=== PATIENT | female | born 1955 | race Caucasian/White ===

== ENCOUNTER 2017-06-23 17:45 | Emergency (ER) | payer BC, OTHER ==
[~2017-06-23] VITALS: Ht 157.5 cm; Wt 65.8 kg
[2017-06-23] MEDS ORDERED: Norco 5mg/325mg tab ORAL ONE (18:15)
[2017-06-23] MEDS ORDERED: IBUPROFEN600 MG ORAL (18:48)
[2017-06-23] MEDS ORDERED: NORCO 5-325 TA1 EACH ORAL (18:48)
--- NOTE | 2017-06-23 18:48 | Emergency Room Report ---
History of Present Illness General Chief Complaint: Lower Extremity Injury Source: Patient (Francesca Ma) Present Illness HPI 62-year-old female presents to the emergency department complaining of 5/10 in severity left ankle pain in addition to right knee pain status post mechanical slip and fall approximately 2 hours ago. Patient reports swelling of the left ankle. Patient states pain is exacerbated upon weightbearing and walking. Patient denies hitting her head or loss of consciousness she denies neck or back pain. Denies numbness tingling or loss of sensation or gross motor movements of the extremities, incontinence of bowel or bladder. Denies CP, Palpitations, LOC, AMS, dizziness, Changes in Vision, Sensation, paresthesias, or a sudden severe headache. (Francesca Ma) Allergies: Coded Allergies: AMPICILLIN (Unverified Allergy, Unknown, 06/23/17) Patient History Past Medical History: see triage record Past Surgical History: none Pertinent Family History: none Now: No Reviewed Nursing Documentation: PMH: Agreed, PSxH: Agreed (Francesca Ma) Nursing Documentation-PMH Past Medical History: No Stated History (Francesca aM) Review of Systems All Other Systems: negative except mentioned in HPI (Francesca Ma) Physical Exam Vital Signs Date Time Temp Pulse Resp B/P (MAP) Pulse Ox O2 Delivery O2 Flow Rate FiO2 06/23/17 17:40 98.2 78 16 120/8 98 Room Air Sp02 EP Interpretation: reviewed, normal General Appearance: no apparent distress, alert, GCS 15, non-toxic Head: normocephalic, atraumatic Eyes: bilateral eye normal inspection, bilateral eye PERRL ENT: hearing grossly normal, normal voice Neck: full range of motion Respiratory: lungs clear, normal breath sounds, speaking full sentences Cardiovascular #1: regular rate, rhythm, normal capillary refill Cardiovascular #2: 2+ dorsalis pedis (L) Musculoskeletal: back normal, gait/station normal, normal range of motion, swelling - LEft lateral ankle, tender - Left lateral ankle, anterior right knee , no increased laxity or obvious deformity, FROM, Snuff box ttp in the left hand, From no obvious deformity. Neurologic: alert, oriented x3, responsive, motor strength/tone normal, sensory intact, speech normal Skin: normal color, no rash, warm/dry, well hydrated (Francesca Ma) Medical Decision Making PA Attestation Dr. galeano is my supervising Physician whom patient management has been discussed with. (Francesca Ma) Diagnostic Impression: Primary Impression: Left ankle sprain Qualified Codes: S93.402A - Sprain of unspecified ligament of left ankle, initial encounter Additional Impressions: Right knee sprain Qualified Codes: S83.91XA - Sprain of unspecified site of right knee, initial encounter Wrist pain, left possible occult scaphoid fracture due to snuff box tenderness after fall ER Course 62-year-old female presents to the emergency department complaining of 5/10 in severity left ankle pain in addition to right knee pain status post mechanical slip and fall approximately 2 hours ago. Patient reports swelling of the left ankle. Patient states pain is exacerbated upon weightbearing and walking. Patient denies hitting her head or loss of consciousness she denies neck or back pain. Denies numbness tingling or loss of sensation or gross motor movements of the extremities, incontinence of bowel or bladder. Denies CP, Palpitations, LOC, AMS, dizziness, Changes in Vision, Sensation, paresthesias, or a sudden severe headache. Ddx considered but are not limited to Fracture, dislocation, contusion, Sprain/ Strain/Spasm. Vital signs: are WNL, pt. is afebrile H&PE are most consistent with musculoskeletal injury will perform imaging to r/ o fractures/dislocations. -Pt. also noted to have snuff box ttp. ORDERS: - X-ray Left ankle, Right knee, and left hand. ED INTERVENTIONS: - [place] PO -ICE PACKS - Air Splint applied to the left ankle by technical project coordinator. Pt. remains neurovascularly intact. - Thumb Spika Splint applied to the left wrist by technical project coordinator. Pt. remains neurovascularly intact. -Chase wrap applied to the right knee by technical project coordinator. Pt. remains neurovascularly intact. --Patient is provided with crutches and instructed on their use ---D/w pt. orthopedic follow up for repeated hand x-rays to r/o occult scaphoid fx. d/w pt. that she is being treated prophylactically due to snuff box tenderness. DISCHARGE: At this time pt. is stable for d/c to home. Will provide printed patient care instructions, and any necessary prescriptions. Care plan and follow up instructions have been discussed with the patient prior to discharge. (Francesca Ma) ER Course Dr Dee called this morning with questionable fx of distal fibula seen on only lateral view Not seen on oblique, ?seen on AP Patient was placed in air cast by PA I called patient and left message of finding and need for repeat xray, Ortho followup (ROBY HIGGINS M.D.) Other X-Ray Diagnostic Results Other X-Ray Diagnostic Results #1: X-Ray ordered: LEFT ANKLE # of Views/Limited Vs Complete: 3 View Indication: Pain EP Interpretation: Yes PA Xray: Interpretation reviewed, by supervising MD Interpretation: no dislocation, no soft tissue swelling, no fractures Impression: No acute disease Electronically Signed by: Francesca Ma pA-C Other X-Ray Diagnostic Results #2: X-Ray ordered: RIGHT KNEE # of Views/Limited Vs Complete: 3 View Indication: Pain EP Interpretation: Yes PA Xray: Interpretation reviewed, by supervising MD, and agrees with findings. Interpretation: no dislocation, no soft tissue swelling, no fractures Impression: No acute disease Electronically Signed by: Francesca Ma PA-C Other X-Ray Diagnostic Results #3: X-Ray ordered: LEFT HAND # of Views/Limited Vs Complete: 3 View Indication: Pain EP Interpretation: Yes PA Xray: Interpretation reviewed, by supervising MD, and agrees with findings. Interpretation: no dislocation, no soft tissue swelling, no fractures Impression: No acute disease Electronically Signed by: Francesca Ma PA-C (Francesca Ma PMillaAMilla) Last Vital Signs Date Time Temp Pulse Resp B/P (MAP) Pulse Ox O2 Delivery O2 Flow Rate FiO2 06/23/17 17:40 98.2 78 16 120/8 98 Room Air (Francesca Ma PSteven) Disposition: HOME, SELF-CARE Condition: Stable Scripts Hydrocodone Bit/Acetaminophen 5-325* (NORCO 5-325*) 1 Each Tablet 1 TAB ORAL Q6H Y for For Pain, #6 TAB 0 Refills Prov: Francesca Ma 06/23/17 Ibuprofen* (MOTRIN*) 600 Mg Tablet 600 MG ORAL THREE TIMES A DAY, #20 TAB 0 Refills Prov: Francesca Ma 06/23/17 Patient Instructions: Ankle Sprain, Scaphoid Fracture, Wrist, Knee Sprain Additional Instructions: Take medications as directed. Follow up with a Primary Care Provider in 3-5 days for ORTHOPEDIC Referral to evaluate for occult wrist fracture Return sooner to ED if new symptoms occur, or current symptoms become worse. - Please note that this Emergency Department Report was dictated using [employer] manager technology software, occasionally this can lead to erroneous entry secondary to interpretation by the dictation equipment. Francesca Ma Jun 23, 2017 18:48 ROBY HIGGINS M.D. Jun 24, 2017 10:09
[2017-06-23 20:25] VITALS: BP 120/8
--- NOTE | 2017-06-24 10:13 | Diagnostic Imaging Report ---
Indication: PAIN, status post fall Technique: 3 views of the left ankle Comparison: none Findings: There is suggestion of a lucency passing partially through the distal fibula on the lateral view, possibly also evident on the AP view. No other evidence of acute fracture. No dislocations. No evidence of tibial fracture. There is lateral soft tissue swelling Impression: Possible distal fibular fracture, versus artifact. Correlate with clinical findings. Findings discussed by phone with Dr. Ybarra in the emergency room at the time of interpretation
--- NOTE | 2017-06-24 10:23 | Diagnostic Imaging Report ---
Indication: PAIN Technique: 3 views of the right knee Comparison: None Findings:No acute fractures. No dislocations. Joint spaces are preserved. No suprapatellar effusion Impression:Negative
--- NOTE | 2017-06-24 10:41 | Diagnostic Imaging Report ---
Indication: PAIN Technique: 3 views left hand Comparison: none Findings: Bones are osteopenic. There is mild degenerative narrowing of the second through fifth proximal and distal interphalangeal joints, the first and fifth metacarpophalangeal joints. No acute fractures. No dislocations. Impression: Degenerative changes, as described No acute bony trauma
== END 2017-06-23 20:25 | disposition home or self-care (01) ==
LOC: EDBD 17:45 → EMR 19:05
DX: S93.402A Sprain of unspecified ligament of left ankle, initial encounter (principal); S83.91XA Sprain of unspecified site of right knee, initial encounter; W01.0XXA Fall on same level from slipping, tripping and stumbling without subsequent striking against object, initial encounter; Y92.89 Other specified places as the place of occurrence of the external cause; Z88.0 Allergy status to penicillin; M25.532 Pain in left wrist
CPT/HCPCS: 99284